=== PATIENT | male | born 1950 | race Caucasian/White ===

== ENCOUNTER → 2016-12-11 | Outpatient (CLI) | payer MEDICARE | END | disposition home or self-care (01) | LOC: PCVCCLINIC 10:39 | PROVIDERS: ATTEND Internal Medicine | DX: I25.5 Ischemic cardiomyopathy (principal); I25.10 Atherosclerotic heart disease of native coronary artery without angina pectoris; I48.0 Paroxysmal atrial fibrillation; E78.5 Hyperlipidemia, unspecified; E11.9 Type 2 diabetes mellitus without complications; I10 Essential (primary) hypertension; Z95.0 Presence of cardiac pacemaker | CPT/HCPCS: 93005; G0463 ==

== ENCOUNTER → 2017-02-23 | Outpatient (CLI) | payer MEDICARE | END | disposition home or self-care (01) | LOC: PCVCCLINIC 13:25 | PROVIDERS: ATTEND Internal Medicine | DX: I25.10 Atherosclerotic heart disease of native coronary artery without angina pectoris (principal); I25.5 Ischemic cardiomyopathy; I48.0 Paroxysmal atrial fibrillation; I10 Essential (primary) hypertension; E78.5 Hyperlipidemia, unspecified; E11.9 Type 2 diabetes mellitus without complications; Z95.0 Presence of cardiac pacemaker | CPT/HCPCS: 80061; G0463 ==

== ENCOUNTER → 2017-09-08 | Outpatient (CLI) | payer MEDICARE ==
--- NOTE | 2017-09-08 14:21 | PCVCIMAG ---
APPROVED REPORT Study performed: 09/08/2017 12:45:27 EXAM: Comprehensive 2D, Doppler, and color-flow Echocardiogram Patient Location: Echo lab Status: routine BSA: 2.30 HR: 70 bpmBP: 134/70 mmHg Rhythm: NSR Other Information Study Quality: Adequate Indications Pacemaker CAD Ischemic Cardiomyopathy, Paroxysmal A Fib 2D Dimensions LVEF(%): 35.79 (>50%) IVSd: 13.48 (7-11mm) LVDd: 49.90 mm PWd: 12.58 (7-11mm) LVDs: 41.31 (25-40mm) Left Atrium: 50.51 (27-40mm) Aortic Root: 35.08 mm LV Single Plane 4CH: 37.55 % LV Single Plane 2CH: 48.65 %Collins's LVEF: 43.10 % Biplane EF: 42.9 % Volumes Left Atrial Volume (Systole) Single Plane 4CH: 69.58 mLSingle Plane 2CH: 68.07 mL LA ESV Index: 32.00 mL/m2 Aortic Valve AoV Peak Max.: 1.56 m/s AO Peak Gr.: 9.74 mmHgLVOT Max P.32 mmHg LVOT Max V: 1.04 m/s Mitral Valve E/A Ratio: 0.8 MV Decel. Time: 232.04 ms MV E Max Max.: 0.72 m/s MV A Max.: 0.88 m/s MV PHT: 67.29 ms IVRT: 110.73 ms Pulmonary Valve PV Peak Max.: 1.07 m/sPV Peak Gr.: 4.56 mmHg Pulmonary Vein P Vein S: 0.29 m/sP Vein A: 0.28 m/s P Vein D: 0.40 m/sP Vein A Dur.: 117.6 msec P Vein S/D Ratio: 0.73 Tricuspid Valve TR Peak Max.: 3.08 m/s TR Peak Gr.: 37.99 mmHg Left Ventricle The left ventricle is normal size. Inferior and inferolateral akinesis at base Mild concentric left ventricular hypertrophy. Mildly decreased systolic function LVEF 45%. Grade I - abnormal relaxation pattern. Right Ventricle The right ventricle is normal size. The right ventricular systolic function is normal. Pacemaker lead is present in the right ventricle. Atria Left atrium is moderately dilated. The right atrium size is normal. Pacemaker lead is present in the right atrium. Aortic Valve The aortic valve is mildly calcified No aortic regurgitation is present. There is no aortic valvular stenosis. Mitral Valve The mitral valve is normal in structure. Mild mitral regurgitation. No evidence of mitral valve stenosis. Tricuspid Valve The tricuspid valve is normal in structure. Mild tricuspid regurgitation with PAP of 45 mmHg. Pulmonic Valve The pulmonary valve is normal in structure. There is no pulmonic valvular regurgitation. Great Vessels The aortic root is normal in size. IVC is normal in size and collapses with >50% inspiration Pericardium There is no pericardial effusion. <Conclusion> Mildly decreased left ventricular systolic function Inferior and inferolateral akinesis at base. LVEF 45%. Grade I diastolic dysfunction Left atrium is moderately dilated. The aortic valve is mildly calcified. No aortic valvular stenosis or insufficiency. The mitral valve is normal in structure. Mild mitral regurgitation. Pulmonary artery pressure of 45mmHg There is no pericardial effusion. Pacing wires seen
== END | disposition home or self-care (01) ==
LOC: PCVCIMAG 12:24
PROVIDERS: ATTEND Internal Medicine
DX: I08.1 Rheumatic disorders of both mitral and tricuspid valves (principal); I10 Essential (primary) hypertension; I25.5 Ischemic cardiomyopathy; I25.10 Atherosclerotic heart disease of native coronary artery without angina pectoris; I48.0 Paroxysmal atrial fibrillation; E78.5 Hyperlipidemia, unspecified; E11.9 Type 2 diabetes mellitus without complications; Z95.0 Presence of cardiac pacemaker; Z79.84 Long term (current) use of oral hypoglycemic drugs; Z79.899 Other long term (current) drug therapy; Z95.1 Presence of aortocoronary bypass graft; Z82.49 Family history of ischemic heart disease and other diseases of the circulatory system; Z87.891 Personal history of nicotine dependence
CPT/HCPCS: 80061; 93005; 93281; 93306; G0463

== ENCOUNTER → 2018-03-07 | Outpatient (CLI) | payer MEDICARE | END | disposition home or self-care (01) | LOC: PCVCCLINIC 10:49 | DX: I25.10 Atherosclerotic heart disease of native coronary artery without angina pectoris (principal); I25.5 Ischemic cardiomyopathy; I48.0 Paroxysmal atrial fibrillation; I10 Essential (primary) hypertension; E78.5 Hyperlipidemia, unspecified; E11.9 Type 2 diabetes mellitus without complications; Z95.0 Presence of cardiac pacemaker; Z87.891 Personal history of nicotine dependence; Z79.84 Long term (current) use of oral hypoglycemic drugs; Z79.899 Other long term (current) drug therapy | CPT/HCPCS: 80061; 93005; 93281; G0463 ==

== ENCOUNTER → 2018-09-12 | Outpatient (CLI) | payer MEDICARE | END | disposition home or self-care (01) | LOC: PCVCCLINIC 10:37 | PROVIDERS: ATTEND Internal Medicine | DX: I25.10 Atherosclerotic heart disease of native coronary artery without angina pectoris (principal); I25.5 Ischemic cardiomyopathy; I48.0 Paroxysmal atrial fibrillation; I10 Essential (primary) hypertension; E78.5 Hyperlipidemia, unspecified; E11.9 Type 2 diabetes mellitus without complications; Z95.0 Presence of cardiac pacemaker; Z79.899 Other long term (current) drug therapy | CPT/HCPCS: 80061; 93005; 93281; G0463 ==

== ENCOUNTER → 2019-03-13 | Outpatient (CLI) | payer MEDICARE ==
[~2019-03-13] MED LIST: REGADENOSON 0.4 MG/5 ML DISP.SYRIN. IV ONE
--- NOTE | 2019-03-13 12:01 | PCVCIMAG ---
APPROVED REPORT Study performed: 03/13/2019 08:09:11 EXAM: Comprehensive 2D, Doppler, and color-flow Echocardiogram Patient Location: Echo lab Status: routine BSA: 2.33 HR: 70 bpmBP: 138/72 mmHg Rhythm: NSR Other Information Study Quality: Adequate Risk Factors: Cardiac Risk Factors: DM, HTN Indications Atrial Fibrillation Pacemaker CAD Cardiomyopathy 2D Dimensions IVSd: 10.91 (7-11mm)LVOT Diam: 21.00 (18-24mm) LVDd: 49.63 mm PWd: 11.33 (7-11mm)Ascending Ao: 35.54 (22-36mm) LVDs: 37.31 (25-40mm) Left Atrium: 43.74 (27-40mm) Aortic Root: 34.12 mm LV Single Plane 4CH: 50.46 % LV Single Plane 2CH: 51.19 % Biplane EF: 46.8 % Volumes Left Atrial Volume (Systole) Single Plane 4CH: 61.40 mLSingle Plane 2CH: 112.51 mL LA ESV Index: 39.00 mL/m2 Aortic Valve AoV Peak Max.: 1.39 m/s AO Peak Gr.: 7.69 mmHgLVOT Max P.39 mmHg LVOT Max V: 1.05 m/s [place] Vmax: 2.50 cm2 Mitral Valve E/A Ratio: 0.7 MV Decel. Time: 232.06 ms MV E Max Max.: 0.74 m/s MV A Max.: 1.00 m/s IVRT: 72.66 ms TDI E/Lateral E': 12.33E/Medial E': 10.57 Medial E' Max.: 0.07 m/s Lateral E' Max.: 0.06 m/s Pulmonary Valve PV Peak Max.: 1.13 m/sPV Peak Gr.: 5.13 mmHg Pulmonary Vein P Vein S: 0.41 m/sP Vein A: 0.23 m/s P Vein D: 0.34 m/sP Vein A Dur.: 83.0 msec P Vein S/D Ratio: 1.21 Tricuspid Valve TR Peak Max.: 2.71 m/sRAP Estimate: 7.00 mmHg TR Peak Gr.: 29.47 mmHg PA Pressure: 36.00 mmHg Left Ventricle The left ventricle is normal size. Borderline concentric left ventricular hypertrophy. Left ventricular systolic function is at the lower limits of normal. Possible mild hypokinesis base of inferolateral wall. LVEF is 50%. Mild diastolic dysfunction is present (impaired relaxation pattern). Right Ventricle The right ventricle is normal size. The right ventricular systolic function is normal. Atria Left atrium is mildly dilated. Right atrium is mildly dilated. Aortic Valve The aortic valve is normal in structure. No aortic regurgitation is present. There is no aortic valvular stenosis. Mitral Valve The mitral valve is normal in structure. Trace mitral regurgitation. No evidence of mitral valve stenosis. Tricuspid Valve The tricuspid valve is normal in structure. Trace tricuspid regurgitation. Pulmonary artery pressure 35 mmHg. Pulmonic Valve The pulmonary valve is normal in structure. Trace pulmonic regurgitation. Great Vessels The aortic root is normal in size. IVC is normal in size and collapses >50% with inspiration. Pericardium There is no pericardial effusion. <Conclusion> Left ventricular systolic function is at the lower limits of normal. Possible mild hypokinesis base of inferolateral wall. LVEF is 50%. Mild diastolic dysfunction The aortic valve is normal in structure. No aortic regurgitation or stenosis The mitral valve is normal in structure. Trace mitral regurgitation. Trace tricuspid regurgitation. Pulmonary artery pressure of 35 mmHg. There is no pericardial effusion.
--- NOTE | 2019-03-13 13:28 | PCVCIMAG ---
APPROVED REPORT Imaging Protocol: Rest Tc-99m/Stress Tc-99m 1 day Study performed: 03/13/2019 09:16:04 Indication: CA, ICM, PAF Patient Location: Out-Patient Stress Nurse: Roma Alvarez RN NE Tech:GRISELDA BrooksMT Ht: 6 ft 1 in Wt: 240 lbs BSA: 2.33 m2 HR: 69 bpm BP: 174/90 mmHg BMI: 31.6 Rhythm: Pacemaker Medical History Medical History: Hyperlipidemia, HTN, CVD, Diabetes, CAD, NH, Former Smoker Medications: Amlodipine, Lisinopril, Glyburide, HCTZ, Metformin, Warfarin, Betapace, Pravastatin, KCL, Actos Allergies: No known drug allergies Cardiac Risk Factors: Age Previous Cardiac Procedures: 2007 PCI, 2015 CABG Pretest Chest Pain Characteristics: No chest pain Exercise History: Indeterminate Resting Data Rest SPECT myocardial perfusion imaging was performed in supine position 45 minutes following the intravenous injection of 9.6 mCi of Tc-99m Sestamibi. Time of rest injection: 0900 Date: 03/13/2019 Administration Route: IV Administration Site: Right Arm Pharmacologic Stress Pharmacologic stress test was performed by injecting Regadenoson 0.4 mg IV push over 10-15 seconds immediately followed by the intravenous injection of 34.2 mCi of Tc-99m Sestamibi. Time of stress injection: 1005 Date: 03/13/2019 Administration Route: IV Administration Site: Right Arm Gated Stress SPECT was performed 45 minutes after stress injection. The images were gated to evaluate regional wall motion and calculate left ventricular ejection fraction. Stress Test Details Stress Test: Pharmacologic stress testing performed using 0.4 mg of regadenoson per 5 mL given IV over 10 seconds. Reason for pharmacologic stress test: physical limitation, pacemaker. HRMax Heart Rate (APMHR): 152 bpm Resting HR: 69 bpmTarget HR (85% APMHR): 129 bpm Max HR Achieved: 80 bpm % of APMHR: 52 Recovery HR: 81 bpm BP Resting BP: 174/90 mmHg Max BP: 140/79 mmHg Recovery BP: 147/73 mmHg ECG Resting ECG: V Paced Stress ECG: V Paced ST Change: Nondiagnostic V-pacing or LBBB Arrhythmia: VPC's Recovery ECG: V Paced Recovery ST Change: Nondiagnostic V-pacing or LBBB Clinical Reason for Termination: Completed protocol Stress Symptoms: Chest pressure Exercise duration: 0 min 55 sec Symptoms resolved with caffeine. Stress ECG Conclusion Non-diagnostic stress due to ventricular pacing Study Quality Study: Good Study Data Post stress, the left ventricular ejection was 51%.. SSS: 12 SRS: 121 SDS: 1 TID = 1.14. Perfusion No evidence of stress induced ischemia. 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 There is a small area of mildly reduced uptake in the apical segment of the anteroseptal wall which is seen on the stress images as well as the resting images likely related to pacemaker/parodoxical septal motion. Nuclear Conclusion No evidence of stress induced ischemia. 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 There is a small area of mildly reduced uptake in the apical segment of the anteroseptal wall which is seen on the stress images as well as the resting images likely related to pacemaker/parodoxical septal motion. No prior study available for comparison. Interpreted by: Nasir Brown MD Electronically Approved: 03/13/2019 13:22:49 <Conclusion> Non-diagnostic stress due to ventricular pacing
== END | disposition home or self-care (01) ==
LOC: PCVCIMAG 07:36
PROVIDERS: ATTEND Internal Medicine
DX: I48.0 Paroxysmal atrial fibrillation (principal); I25.10 Atherosclerotic heart disease of native coronary artery without angina pectoris; I25.5 Ischemic cardiomyopathy; I10 Essential (primary) hypertension; E11.9 Type 2 diabetes mellitus without complications; Z95.0 Presence of cardiac pacemaker; Z87.891 Personal history of nicotine dependence
CPT/HCPCS: 36415; 78452; 80061; 93017; 93281; 93306; A9500; G0463; J2785